=== PATIENT | male | born 1935 | race Caucasian/White ===

== ENCOUNTER 2018-08-27 11:59 | Emergency (ER) | payer OTHER ==
[~2018-08-27] VITALS: Ht 167.6 cm; Wt 57.2 kg
[2018-08-27] MEDS ORDERED: CENTRUM ADULTS1 EACH PO (12:26)
[2018-08-27] MEDS ORDERED: PRAVASTATIN SOD10 MG PO (12:27)
[2018-08-27] MEDS ORDERED: CEPHALEXIN500 MG PO (12:27)
[2018-08-27] MEDS ORDERED: FERROUS SULFATE1 GM MC (12:27)
[2018-08-27] MEDS ORDERED: ADULT ASPIRIN81 MG PO (12:27)
[2018-08-27] MEDS ORDERED: PROSCAR5 MG PO (12:28)
[2018-08-27] MEDS ORDERED: DONEPEZIL HCL OD5 MG PO (12:28)
== END 2018-08-27 18:02 | disposition home or self-care (01) ==
LOC: ER 11:59
DX: G62.89 Other specified polyneuropathies (principal); I70.8 Atherosclerosis of other arteries; M79.661 Pain in right lower leg

== ENCOUNTER 2019-08-19 09:37 | Emergency (ER) | payer OTHER ==
[~2019-08-19] VITALS: Ht 167.6 cm; Wt 54.4 kg
[~2019-08-19 09:37] MED LIST: ADULT ASPIRIN81 MG PO; CENTRUM ADULTS1 EACH PO; CEPHALEXIN500 MG PO; DONEPEZIL HCL OD5 MG PO; FERROUS SULFATE1 GM MC; PRAVASTATIN SOD10 MG PO; PROSCAR5 MG PO
[2019-08-19] MEDS ORDERED: NEURONTIN800 MG (10:02)
[2019-08-19] MEDS ORDERED: XANAX2 MG (10:02)
[2019-08-19] MEDS ORDERED: COZAAR25 MG (10:03)
== END 2019-08-19 17:28 | disposition home or self-care (01) ==
LOC: ER 09:37
DX: J11.1 Influenza due to unidentified influenza virus with other respiratory manifestations (principal); I95.89 Other hypotension

== ENCOUNTER 2019-08-26 12:57 | Emergency (ER) | payer OTHER ==
[~2019-08-26] VITALS: Ht 167.6 cm; Wt 54.4 kg
[~2019-08-26 12:57] MED LIST changes: +COZAAR25 MG; +NEURONTIN800 MG; +XANAX2 MG
[2019-08-26] MEDS ORDERED: MULTI VITAMIN1 EACH (13:42)
== END 2019-08-26 17:57 | disposition home or self-care (01) ==
LOC: ER 12:57
DX: B33.8 Other specified viral diseases (principal); B96.0 Mycoplasma pneumoniae [M. pneumoniae] as the cause of diseases classified elsewhere; N39.0 Urinary tract infection, site not specified; R31.29 Other microscopic hematuria

== ENCOUNTER 2021-01-11 12:30 | Inpatient (IN) | payer OTHER ==
[~2021-01-11] VITALS: Ht 167.6 cm; Wt 59.9 kg
[~2021-01-11 12:30] MED LIST changes: +MULTI VITAMIN1 EACH
[2021-01-18] MEDS ORDERED: TOLTERODINE TART2 M1 (13:22)
[2021-01-18] MEDS ORDERED: FOLIC ACID1 MG (13:23)
[2021-01-18] MEDS ORDERED: OXYBUTYNIN CHLOR5 MG (13:23)
[2021-01-18] MEDS ORDERED: CETIRIZINE HCL10 MG (13:23)
[2021-01-18] MEDS ORDERED: FERROUS SULFAT325 MG (13:23)
[2021-01-18] MEDS ORDERED: DONEPEZIL HCL10 MG (13:23)
[2021-01-18] MEDS ORDERED: FEXOFENADINE H180 MG (13:25)
[2021-01-18] MEDS ORDERED: BACLOFEN10 MG (13:25)
[2021-01-18] MEDS ORDERED: DULOXETINE HCL60 MG (13:25)
[2021-01-18] MEDS ORDERED: DIAZEPAM5 MG PO (13:48)
[2021-01-18] MEDS ORDERED: COLACE100 MG PO (13:48)
[2021-01-18] MEDS ORDERED: PERCOCET 5-3251 EACH PO (13:48)
[2021-01-18] MEDS ORDERED: MEDROLPACK PO (13:48)
== END 2021-01-19 12:57 | disposition home or self-care (01) | DRG 473 ==
LOC: O/R 01-18 05:45 → SURH 01-18 05:45
PROVIDERS: ADMIT Orthopaedic Surgery Orthopaedic Surgery of the Spine; ATTEND Orthopaedic Surgery Orthopaedic Surgery of the Spine
PROC: 07DS3ZZ Extraction of Vertebral Bone Marrow, Percutaneous Approach (ICD-10-PCS; 2021-01-18)
PROC: XRG20F3 Fusion of 2 or more Cervical Vertebral Joints using Radiolucent Porous Interbody Fusion Device, Open Approach, New Technology Group 3 (ICD-10-PCS; principal; 2021-01-18 16:30)
DX: M50.021 Cervical disc disorder at C4-C5 level with myelopathy (principal); M48.02 Spinal stenosis, cervical region

== ENCOUNTER 2021-07-08 09:40 | Outpatient (CLI) | payer OTHER ==
[~2021-07-08 09:40] MED LIST changes: +BACLOFEN10 MG; +CETIRIZINE HCL10 MG; +COLACE100 MG PO; +DIAZEPAM5 MG PO; +DONEPEZIL HCL10 MG; +DULOXETINE HCL60 MG; +FERROUS SULFAT325 MG; +FEXOFENADINE H180 MG; +FOLIC ACID1 MG; +MEDROLPACK PO; +OXYBUTYNIN CHLOR5 MG; +PERCOCET 5-3251 EACH PO; +TOLTERODINE TART2 M1
== END 2021-07-08 09:47 | disposition home or self-care (01) ==
LOC: RX STUDY 09:40
PROVIDERS: ATTEND Otolaryngology
DX: R13.19 Other dysphagia (principal)